=== PATIENT | female | born 1950 | race Caucasian/White ===

== ENCOUNTER → 2020-07-10 14:01 | Outpatient (BNVA) | payer MEDICARE, SELFPAY | PROVIDERS: Family Provider Family Medicine; PCP Family Medicine; Visit Provider Nurse Practitioner Family | DX: N39.0 Urinary tract infection, site not specified (principal) | CPT/HCPCS: 81000; 87077; 87086; 87184 ==

== ENCOUNTER → 2020-09-02 10:46 | Outpatient (BNVA) | payer MEDICARE, SELFPAY | PROVIDERS: Family Provider Family Medicine; PCP Family Medicine; Visit Provider Family Medicine | DX: E28.39 Other primary ovarian failure (principal); N64.4 Mastodynia; Z98.890 Other specified postprocedural states; Z68.1 Body mass index [BMI] 19.9 or less, adult | CPT/HCPCS: 80053; 85025 ==

== ENCOUNTER 2021-07-05 10:46 | Outpatient (CLI) | payer MEDICARE, SELFPAY ==
--- NOTE | 2021-07-05 10:57 | XR_ITS ---
WS: [id number] Exam: XR hip LT 2-3V wo/w pel* [id number] Date/Time of Exam: 07/05/2021 10:57 AM Reason For Exam: pain left hip/thigh s/p trauma No fracture or dislocation. Mild DJD of the joint compartment. Acetabular morphology that may predisp ose the patient to acetabular femoral impingement. Normal soft tissues. XR/XR hip LT 2-3V wo/w pel* [id number] IMPRESSION: 1. Mild DJD. No fracture. 2. Acetabular morphology that might predispose the patient to femoral acetabula r impingement.
--- NOTE | 2021-07-05 10:57 | XR_ITS ---
WS: [id number] Exam: XR lumbar spine 2-3V* [id number] Date/Time of Exam: 07/05/2021 10:57 AM Reason For Exam: left hip and thigh pain s/p fall 3 weeks prior to encounter No fracture or dislocation. Disc spaces are relatively well maintained. Mild facet DJD at all levels. Osteopenia. Mild levoscoliosis. XR/XR lumbar spine 2-3V* [id number] IMPRESSION: 1. Mild degenerative changes and osteopenia. Mild scoliosis. 2. No fracture or malalignment.
== END 2021-07-05 10:47 | disposition home or self-care (01) ==
LOC: RAD 10:48
PROVIDERS: Family Provider Family Medicine; PCP Family Medicine; Visit Provider Family Medicine
DX: M41.86 Other forms of scoliosis, lumbar region (principal); M16.12 Unilateral primary osteoarthritis, left hip; W19.XXXA Unspecified fall, initial encounter
CPT/HCPCS: 72100; 73502

== ENCOUNTER → 2022-10-05 07:43 | Outpatient (BNVA) | payer MEDICARE, SELFPAY | PROVIDERS: PCP Family Medicine; Visit Provider Otolaryngology | DX: H90.3 Sensorineural hearing loss, bilateral (principal); H61.22 Impacted cerumen, left ear; H93.12 Tinnitus, left ear | CPT/HCPCS: 69210; 99203 ==

== ENCOUNTER 2022-10-25 08:55 | Outpatient (CLI) | payer MEDICARE, SELFPAY ==
--- NOTE | 2022-10-25 09:30 | MR_ITS ---
WS: [id number] MRI HEAD WITH CONTRAST WITH ATTENTION TO THE INTERNAL AUDITORY CANALS TECHNIQUE: Sagittal T1, T2 axial, T2 axial flair, axial susceptibility weighted imaging, axial diffus ion weighted images, and coronal T2 images were obtained. Pre and post T1 axial and post T1 coronal i mages. ADC and FSPGR images. Post gadolinium images with attention to the internal auditory canals. A xial fiesta imaging. CLINICAL INFORMATION: unilateral hearing loss COMPARISON: None. FINDINGS: No evidence of restricted diffusion to suggest acute ischemia. Ventricular system and basal cisterns are patent. Mild small vessel changes. Mild parenchymal volume loss. Normal posterior fossa. Normal v ascular flow voids at the skull base. No extra-axial fluid collections. No evidence of mass or mass e ffect. Mild mucosal thickening ethmoid air cells. Paranasal sinuses otherwise well aerated. Mastoid a ir cells well aerated. Normal posterior nasopharynx. Normal parapharyngeal fat. No hemosiderin on the susceptibly weighted images. Normal optic chiasm and pituitary infundibulum. Pr oximal 7th and 8th cranial nerves are normal in appearance. Normal trigeminal nerve root entry zones. No evidence of enhancing IAC or CP angle mass. No abnormal gadolinium enhancement. Normal dural veno us sinuses. MR/MR iac's wo/w con* [id number] IMPRESSION: 1. No evidence of restricted diffusion to suggest acute ischemia. 2. No evidence of enhancing IAC or CP angle mass. Normal trigeminal nerve root entry zones. 3. Mild small vessel changes. Mild parenchymal volume loss. 4. No hemosiderin on susceptibly weighted images. 5. Paranasal sinuses and mastoid air cells are well aerated.
[2022-10-25] MEDS: gadobenate dimeglumine 20 mL vial IV (09:57)
== END 2022-10-25 08:56 | disposition home or self-care (01) ==
PROVIDERS: PCP Family Medicine; Visit Provider Otolaryngology
DX: H90.3 Sensorineural hearing loss, bilateral (principal)
CPT/HCPCS: 70553; A9577

== ENCOUNTER → 2022-11-07 10:08 | Outpatient (BNVA) | payer MEDICARE, SELFPAY | PROVIDERS: PCP Family Medicine; Visit Provider Otolaryngology | DX: H90.3 Sensorineural hearing loss, bilateral (principal); H93.12 Tinnitus, left ear | CPT/HCPCS: 99213 ==

== ENCOUNTER → 2023-12-26 12:23 | Outpatient (BNVA) | payer MEDICARE, SELFPAY | PROVIDERS: PCP Family Medicine; Visit Provider Family Medicine | DX: E28.39 Other primary ovarian failure (principal) | CPT/HCPCS: 80053; 85025 ==

== ENCOUNTER 2024-02-29 09:32 | Outpatient (CLI) | payer MEDICARE, SELFPAY ==
--- NOTE | 2024-02-29 09:40 | MM_ITS ---
WS: [id number] BILATERAL SCREENING DIGITAL TOMOSYNTHESIS MAMMOGRAM WITH CAD HISTORY: Z12.39 - Encounter for other screening for malignant neop... COMPARISON: None available. Bilateral CC and MLO views with tomosynthesis and synthetic mammography submitted. Computer aided det ection analyzed. Breast composition: The breasts are extremely dense, which lowers the sensitivity of mammography. No suspicious masses, microcalcifications or architectural distortion. There are a few scattered calcifi cations within each breast. MM/MM scr tomosynthesis [id number] IMPRESSION: BI-RADS: 2 - Benign FOLLOW UP: 1 Year Follow-up
== END 2024-02-29 09:33 | disposition home or self-care (01) ==
LOC: MOBLMAM 09:47
PROVIDERS: PCP Family Medicine; Visit Provider Family Medicine
DX: Z12.31 Encounter for screening mammogram for malignant neoplasm of breast (principal); R92.333 Mammographic heterogeneous density, bilateral breasts; R92.1 Mammographic calcification found on diagnostic imaging of breast
CPT/HCPCS: 77063; 77067

== ENCOUNTER → 2024-09-05 11:06 | Outpatient (BNVA) | payer MEDICARE, SELFPAY | PROVIDERS: PCP Family Medicine; Visit Provider Family Medicine | DX: E78.00 Pure hypercholesterolemia, unspecified (principal) | CPT/HCPCS: 80061 ==